=== PATIENT | female | born 1970 | race Hispanic/Latino ===

== ENCOUNTER 2017-03-20 06:58 | Inpatient (IN) | payer BC, OTHER ==
[2017-03-14 12:46] VITALS: BMI 21.0
[2017-03-20] MEDS ORDERED: Bupivacaine/Epi 0.25%-1:200,000 10 ml PF inj IJ ONE (08:37)
[2017-03-20] MEDS ORDERED: Clindamycin 2% Vaginal Cream(40 gm) ONE ×2 (08:38→10:04)
[2017-03-20] MEDS ORDERED: Lidocaine 1% Inj (20ml) ONE (08:38)
[2017-03-20] MEDS ORDERED: ceFAZolin IV 2 gm in Dextrose 0 GM/0 ML BAG IVPB ONE (08:38)
[2017-03-20] MEDS ORDERED: Propofol 10 mg/ml Inj (20 ML) ONE (08:46)
[2017-03-20] MEDS ORDERED: Midazolam 2 MG/2 ML VIAL ONE (08:46)
[2017-03-20] MEDS ORDERED: Lactated Ringer's 1,000 ML IV ONE ×2 (08:50)
[2017-03-20] MEDS: cefOXitin IV 2 gm in Dextrose 2 GM/50 ML BAG IVPB ONE ×3 (08:50→09:00)
--- NOTE | 2017-03-20 10:22 | PCM.SURG1 ---
Surgeon's Initial Post Op Note - Surgeon's Notes Surgeon: caroline bass md [employer] Manager: macho MADRIGAL Type of Anesthesia: General Endo Pre-Operative Diagnosis: Rectocele. Vaginal pain dysparunia. hyperplastic labia / enlarged labia Operative Findings: hyperplastic asymetrical labia 2" Left. rectocele II. Detailed operative report. This is a 46 years old female with long-standing and worsening symptoms of rectocele and dysparunia, associated rectocele and extensive enlarged labia minora. The patient reports these debilitating symptoms since the delivery of her last child, a traumatic delivery requiring extensive vaginal repair. A prolong and detailed discussion about conservative versus surgical management of rectocele hyperplastic labia was completed. The patient elected to proceed with surgical management of rectocele repair, and labia plasty or excision of hyperpolastic enlarged labia. A decision was made to proceed with a posterior vaginal repair and labiaplasty / excision of hyperplastic labia. . After a detailed discussion regarding the pros and cons of vaginal repair and labiaplasty surgery, a proper consent was obtained from the patient, patient was taken to the operating room, placed in the dorsolithotomy position; general anesthesia was obtained without difficulty. She was placed in the dorsal lithotomy position, her legs were placed in adjustable Zion stirrups, and careful attention was placed not to over flex or over rotates the lower extremities and the hip or knee joints. Christensen catheter was inserted under sterile conditions. She was prepped and draped appropriately for a posterior colporhaphy, and labiaplasty. A sagittal incision was made in the vaginal epithelium in the posterior compartment beginning at the forchettte, moving proximally towards the apex of the vagina. Lateral dissection underneath the epithelium was performed, leaving a thick flap between the vagina and rectum. The vaginal epithelium was undermined to the vaginal apex, exposing the underlying rectocele and posterior compartment defect. Next, the posterior defect in the posterior wall was identified and multiple interrupted sutures using o vicryl material was used. The rectovaginal fascia was re-approximated all the way extending to the apex of the vagina. The rectocele was reduced under the approximation of endopelvic fascia. Redundant vaginal mucosa was excised and the vaginal incision was then closed using a running 2-0 Vicryl ligature. Perineoorphy was completed by recreating the perineal body with multiple 0 vycryl suture in interrupted suture. Careful approximation of the vaginal mucosa was performed without tension. NExt, local anesthetic solution of 0.24% marcaine was used and the labia minora was injected to aid in hemostasis and anlgesia. The extensive enlarged labia was excised maintaining a much submocosal tissue as possible. The labia edges were approximated with 2-0 and 3-0 vycril in interupted fashion. Excelent hemostsis noted throughout the procedure. Christensen cathetr was left in situ to be removed the next morning. vaginal packing was inserted to be removed the next morning. prior to incision pt received antibiotics and prior to closure sponge lap and needle count were correct times 2. Post-Operative Diagnosis: Rectocele. Vaginal pain dysparunia. hyperplastic labia / enlarged labia Operation Performed: posterior colporhaphy. perineoorphy. Labiaplasty / excision of enlarged labia Specimen/Specimens Removed: vaginal mucosa Estimated Blood Loss: EBL {In ML}: 5 Blood Products Given: N/A Drains Used: No Drains Post-Op Condition: Good Date of Surgery/Procedure: 03/20/17 Time of Surgery/Procedure: 10:22
[2017-03-20] MEDS ORDERED: Oxycodone/Acetaminophen 5/325 mg Tab PO PRN (10:37)
[2017-03-20] MEDS ORDERED: Trimethobenzamide 200 mg/2 mL Inj IM PRN (10:37)
[2017-03-20] MEDS ORDERED: Morphine 4 MG/ML VIAL IVP PRN (10:37)
[2017-03-20] MEDS ORDERED: ceFAZolin 2 GM in Sodium Chloride 0.9% 100 ML IVPB SCH (10:45)
[2017-03-20] MEDS ORDERED: Sodium Chloride 0.9% 1,000 ML IV SCH (10:45)
[2017-03-20] MEDS: HYDROmorphone 0.5 mg/0.5 ml ISec IVP PRN ×2 (10:46→11:10)
[2017-03-20] MEDS ORDERED: Sodium Chloride 0.9% 1,000 ML IV ONE (12:45)
[2017-03-20] MEDS: Lactated Ringer's 1,000 ML IV SCH (20:30)
[2017-03-21] MEDS: Lactated Ringer's 1,000 ML IV SCH (06:30)
[2017-03-21 08:10] LABS: HEMATOCRIT 35.2 % (34.0-47.0); MEAN CELL VOLUME 91.2 fL (81.0-99.0); MEAN CORPUSCULAR HGB CONC 32.9 g/dL (33.0-37.0); MEAN PLATELET VOLUME 9.3 fL (7.2-11.7); RED CELL DISTRIBUTION WIDTH 14.1 % (11.5-14.5); WHITE BLOOD COUNT 13.2 K/uL (4.8-10.8)
[2017-03-21 08:13] LABS: CHLORIDE 102 mmol/L (98-107); POTASSIUM 3.7 mmol/L (3.6-5.2); SODIUM 137 mmol/L (132-148)
[2017-03-21 08:16] LABS: BLOOD UREA NITROGEN 10 mg/dL (7-17); CARBON DIOXIDE 25 mmol/L (22-30); GFR AFRICAN-AMERICAN > 60; GLUCOSE,RANDOM 136 mg/dL (65-105)
[2017-03-21 08:17] LABS: CALCIUM 8.4 mg/dl (8.6-10.4)
[2017-03-21] MEDS ORDERED: Enoxaparin 30 mg Syringe SC SCH (10:38)
[2017-03-21 21:54] VITALS: BP 137/87; PULSE 85; RESP 20; TEMP 98.3; O2SAT 98
== END 2017-03-21 20:25 | disposition home or self-care (01) | DRG 747 ==
LOC: C.SDS 06:58 → C.4M 10:37
PROVIDERS: ADMIT Obstetrics & Gynecology; ATTEND Obstetrics & Gynecology
PROC: 0UQG0ZZ Repair Vagina, Open Approach (ICD-10-PCS; 2017-03-20)
PROC: 0HQ9XZZ Repair Perineum Skin, External Approach (ICD-10-PCS; 2017-03-20)
PROC: 0JQC0ZZ Repair Pelvic Region Subcutaneous Tissue and Fascia, Open Approach (ICD-10-PCS; principal; 2017-03-20 08:50)
DX: N81.6 Rectocele (principal); N90.69 Other specified hypertrophy of vulva; N94.19 Other specified dyspareunia